=== PATIENT | female | born 1995 | race Caucasian/White ===

== ENCOUNTER 2019-01-18 13:05 | Inpatient (IN) | payer OTHER ==
[~2019-01-18] VITALS: Ht 154.9 cm; Wt 85.8 kg
[2019-01-18 13:17] VITALS: Ht 154.9 cm; Wt 85.8 kg
[2019-01-18 13:45] LABS: PLATELET COUNT 301 x10^3mcL (130-400); RED CELL DISTRIBUTION WIDTH 12.8 % (11.5-14.5)
[2019-01-18 13:52] LABS: BASOPHIL % 0 % (0-2)
[2019-01-18 15:04] LABS: CALCIUM 8.4 mg/dL (8.5-10.1); CARBON DIOXIDE 27.6 mmol/L (21-32); CHLORIDE SERUM 107 mmol/L (98-107); CREATININE SERUM 0.7 mg/dL (0.6-1.0); GFR1 > 60 mL/min; GLUCOSE SERUM 106 mg/dL (74-106); POTASSIUM SERUM 4.2 mmol/L (3.5-5.1); SODIUM SERUM 142 mmol/L (136-145)
[2019-01-18 15:09] LABS: ALBUMIN 3.6 g/dL (3.4-5.0); ALKALINE PHOSPHATASE 84 U/L (46-116); ALT/SGPT 32 U/L (14-59); AST/SGOT 21 U/L (15-37); BILIRUBIN TOTAL 0.3 mg/dL (0.20-1.00); TOTAL PROTEIN, SERUM 7.1 g/dL (6.4-8.2)
[2019-01-18] MEDS ORDERED: PRENATAL LOW IR1 TA1 (15:11)
[2019-01-18 15:41] LABS: MAGNESIUM 2.1 mg/dL (1.8-2.4); PHOSPHOROUS 3.2 mg/dL (2.5-4.9)
[2019-01-18 17:16] VITALS: BP 120/73
[2019-01-18 18:12] VITALS: BP 120/68
[2019-01-18 19:54] VITALS: BP 109/69
[2019-01-19 05:28] VITALS: BP 117/65
[2019-01-19 06:27] LABS: BASOPHIL % 0.3 % (0-2); PLATELET COUNT 249 x10^3mcL (130-400); RED CELL DISTRIBUTION WIDTH 13.4 % (11.5-14.5)
[2019-01-19 06:43] LABS: CALCIUM 8.4 mg/dL (8.5-10.1); CARBON DIOXIDE 26.8 mmol/L (21-32); CHLORIDE SERUM 105 mmol/L (98-107); CREATININE SERUM 0.6 mg/dL (0.6-1.0); GFR1 > 60 mL/min; GLUCOSE SERUM 89 mg/dL (74-106); PHOSPHOROUS 3.9 mg/dL (2.5-4.9); POTASSIUM SERUM 3.6 mmol/L (3.5-5.1); SODIUM SERUM 139 mmol/L (136-145)
[2019-01-19 08:56] VITALS: BP 112/61
[2019-01-19 13:19] VITALS: BP 113/53
[2019-01-19 13:57] VITALS: BP 113/53
[2019-01-19 14:21] LABS: UA SPECIFIC GRAVITY 1.015 (1.005-1.035); microscopic required? YES; urine erythrocyte NEGATIVE (NEGATIVE)
== END 2019-01-19 14:30 | disposition home or self-care (01) | DRG 566 ==
LOC: ED 13:05 → MU 15:04
PROVIDERS: Emergency Medicine; ADMIT Internal Medicine
DX: O00.102 Left tubal pregnancy without intrauterine pregnancy (principal); D72.829 Elevated white blood cell count, unspecified; F43.9 Reaction to severe stress, unspecified
CPT/HCPCS: G0378; J7030; J7042